=== PATIENT | male | born 1975 | race Caucasian/White ===

== ENCOUNTER 2016-12-21 10:10 | Emergency (ER) | payer BC ==
[2016-12-21] MEDS ORDERED: ZOFRAN4 M2 PO (10:41)
[2016-12-21] MEDS ORDERED: BACTRIM DS TAB1 EAC2 PO (10:41)
[2016-12-21] MEDS ORDERED: [UNRECOGNIZED DRUG - REMARK] (10:41)
[2016-12-21] MEDS ORDERED: COPAXONE40 MG/1 M1 SC (10:47)
[2016-12-21 10:57] LABS: BASO % 0.2 % (0-2); EOS % 0.2 % (0-7); HCT-HEMATOCRIT 45.5 % (36.0-53.5); HGB-HEMOGLOBIN 15.5 gm/dl (13.5-17.0); IMMATURE GRANULOCYTES ABSOLUTE 0.03 tho/cmm (0-0.03); IMMATURE GRANULOCYTES PERCENT 0.2 % (0-0.3); LYMPH % 8.8 % (20-45); LYMPH ABSOLUTE COUNT 1.1 tho/cmm (0.8-4.5); MCH (MEAN CORPUSCULAR HGB) 29.4 pg (28.0-32.0); MCHC MEAN CORPUSCULAR HGB CONC 34.1 % (32.0-36.0); MCV (MEAN CELL VOLUME) 86.3 fl (82.0-96.0); MEAN PLATELET VOLUME 9.8 cmc (9.4-12.4); MONOCYTE ABSOLUTE COUNT 0.4 tho/cmm (0.0-1.2); NEUTROPHIL ABSOLUTE COUNT 10.6 tho/cmm (1.6-8.0); NEUTROPHIL-AUTOMATED 10.6 tho/cmm (1.6-8.0); NEUTROPHILS % 87.6 % (40-80); PLATELET COUNT 304 tho/cmm (150-450); RED BLOOD COUNT 5.27 mil/cmm (4.40-5.70); RED CELL DISTRIBUTION WIDTH 13.3 % (12.4-16.4); WHITE BLOOD COUNT 12.1 tho/cmm (4.0-10.0)
[2016-12-21 11:12] LABS: ALBUMIN 4.2 g/dl (3.5-5.0); ALKALINE PHOSPHATASE 61 U/L (33-138); ALT/SGPT 29 U/L (12-78); ANION GAP 14 mmol/L (0-20); AST/SGOT 12 U/L (10-40); BILIRUBIN,TOTAL 0.5 mg/dl (0.0-1.5); BLOOD UREA NITROGEN 22 mg/dl (6-24); CALCIUM 8.9 mg/dl (8.5-10.5); CARBON DIOXIDE-VENOUS 25 mmol/L (22-32); CHLORIDE 105 mmol/l (96-110); CREATININE 1.26 mg/dl (0.60-1.30); GLUCOSE 116 mg/dL (70-110); POTASSIUM 4.2 mmol/L (3.7-5.1); SODIUM 140 mmol/L (135-145); T4 (THYROXINE) 9.5 ug/dl (5.0-12.6); eGFR VALUE FOR BLACK 82 mL/Min
[2016-12-21 11:16] LABS: TSH-THYROID STIMULATING HORM. 2.15 uIU/ml (0.40-3.80)
[2016-12-21 12:07] LABS: URINE BILIRUBIN NEGATIVE (NEG); URINE BLOOD NEGATIVE (NEG); URINE GLUCOSE (UA) NEGATIVE (NEG); URINE KETONE MODERATE (NEG); URINE LEUKOCYTE ESTERASE NEGATIVE (NEG); URINE NITRITE NEGATIVE (NEG); URINE PROTEIN SMALL (NEG); URINE SPECIFIC GRAVITY 1.025 (1.003-1.030)
[2016-12-21 12:23] LABS: URINE APPEARANCE CLEAR; URINE COLOR YELLOW
[2016-12-21 12:33] LABS: URINE RBC RARE /[HPF] (0-5)
[2016-12-21 12:34] LABS: URINE AMORPHOUS 2+; URINE MUCUS 3+
[2016-12-21] MEDS ORDERED: ATIVAN1 M2 PO (12:42)
== END 2016-12-21 12:52 ==
LOC: EDMED 10:10
PROVIDERS: Physician Assistant
DX: R42 Dizziness and giddiness (principal); R11.2 Nausea with vomiting, unspecified
CPT/HCPCS: J2060; J2405; J7030